=== PATIENT | female | born 1980 | race Caucasian/White ===

== ENCOUNTER → 2016-04-02 | Outpatient (CLI) | payer OTHER, BC | LOC: LAB 09:51 | PROVIDERS: ATTEND Obstetrics & Gynecology | DX: N91.0 Primary amenorrhea (principal) | CPT/HCPCS: 36415; 84144; 84439; 84443; 84702 ==

== ENCOUNTER → 2016-04-04 | Outpatient (CLI) | payer OTHER, BC | LOC: LAB 07:21 | PROVIDERS: ATTEND Obstetrics & Gynecology | DX: N91.0 Primary amenorrhea (principal) | CPT/HCPCS: 36415; 84144; 84702 ==

== ENCOUNTER → 2016-04-11 | Outpatient (CLI) | payer OTHER, BC | LOC: LAB 09:19 | PROVIDERS: ATTEND Obstetrics & Gynecology | DX: O09.891 Supervision of other high risk pregnancies, first trimester (principal) | CPT/HCPCS: 36415; 84144; 84702 ==

== ENCOUNTER → 2016-04-18 | Outpatient (CLI) | payer OTHER, BC | LOC: LAB 07:48 | PROVIDERS: ATTEND Obstetrics & Gynecology | DX: O09.892 Supervision of other high risk pregnancies, second trimester (principal) | CPT/HCPCS: 36415; 84144; 84702 ==